=== PATIENT | female | born 1975 | race Caucasian/White ===

== ENCOUNTER 2017-06-04 18:25 | Outpatient (CLI) | END 2017-06-04 21:30 | disposition home or self-care (01) ==

== ENCOUNTER 2017-06-11 05:09 | Inpatient (IN) | END 2017-06-14 13:25 | disposition home or self-care (01) | DRG 766 ==

== ENCOUNTER 2018-05-17 13:27 | Emergency (ER) | payer OTHER ==
[~2018-05-17] VITALS: Ht 157.5 cm; Wt 56.6 kg
[2018-05-17 13:32] VITALS: Ht 157.5 cm; Wt 56.6 kg
[2018-05-17] MEDS ORDERED: RANI300T PO (14:11)
[2018-05-17] MEDS ORDERED: SOD CHLORIDE 0.9% 1,000 ML IV STA (14:23)
[2018-05-17] MEDS ORDERED: FAMOTIDINE 20 MG INJ IV STA (14:23)
[2018-05-17] MEDS ORDERED: morphine 4 MG/ML VIAL IV STA (14:23)
[2018-05-17] MEDS ORDERED: LIDOCAINE/MYLANTA 40 ML BTL PO STA (14:23)
[2018-05-17] MEDS ORDERED: METOCLOPRAMIDE 10 MG INJ IV STA (14:23)
[2018-05-17] MEDS ORDERED: METO10TA92 PO (15:51)
[2018-05-17] MEDS ORDERED: SUCR1TAB56 PO (15:51)
[2018-05-17 16:04] VITALS: BP 134/78; PULSE 78; RESP 20
--- NOTE | 2018-05-17 16:20 | ERD ---
ER Documentation Chief Complaint Chief Complaint abd pain x 4 days with nausea, denies vomiting/diarrhea HPI 43-year-old female with a history of gastritis and H. pylori presenting with complaints of severe epigastric discomfort. She feels like something is stuck in her epigastrium. She complains of pressure-like, burning pain, that radiates up into her chest. She feels some throat pain likely secondary to her reflux. She states that recently she was eating spicy food and she thinks that may have caused the pain. Pain does not radiate to the back. She has had episodes of retching but has not been vomiting. Her pain is worse with food. It is intermittent and provoked with food. No alleviating factors. She is already taking omeprazole and ranitidine without improvement of her symptoms. Denies fevers or chills. No melena or hematochezia. ROS All systems reviewed and are negative except as per history of present illness. Medications Home Meds Active Scripts Sucralfate* (Carafate*) 1 Gm Tab, 1 GM PO QID PRN for Before each meal, #30 TAB Prov:HETAL GUZMÁN MD 05/17/18 Metoclopramide* (Reglan*) 10 Mg Tablet, 10 MG PO Q6 PRN for NAUSEA AND/OR VOMITING, #20 TAB Prov:HETAL GUZMÁN MD 05/17/18 Reported Medications Ranitidine Hcl* (Ranitidine Hcl*) 300 Mg Tablet, 300 MG PO HS, #30 TAB 05/17/18 Allergies Allergies: Coded Allergies: No Known Allergy (Unverified , 05/17/18) PMhx/Soc History of Surgery: Yes (RIGHT HAND CYST SX, ) Anesthesia Reaction: No Hx Neurological Disorder: No Hx Respiratory Disorders: No Hx Cardiac Disorders: No Hx Psychiatric Problems: No Hx Miscellaneous Medical Probl: No Hx Alcohol Use: Yes Hx Substance Use: No Hx Tobacco Use: Yes Smoking Status: Never smoker FmHx Family History: No diabetes Physical Exam Vitals Vital Signs Date Temp Pulse Resp B/P (MAP) Pulse Ox O2 O2 Flow FiO2 Time Delivery Rate 05/17/18 78 20 134/78 99 Room Air 16:04 (96) 05/17/18 97.6 107 20 156/79 99 13:32 (104) Physical Exam Const: No acute distress, nontoxic Head: Atraumatic Eyes: Normal Conjunctiva ENT: Normal External Ears, Nose and Mouth. Neck: Full range of motion. No meningismus. Resp: Clear to auscultation bilaterally Cardio: Regular rate and rhythm, no murmurs Abd: Soft, discomfort to palpation in epigastrium without significant tenderness. No rebound or guarding., non distended. Negative Fish sign. Normal bowel sounds Skin: No petechiae or rashes Back: No midline or flank tenderness Ext: No cyanosis, or edema Neur: Awake and alert Psych: Normal Mood and Affect Result Diagram: 05/17/18 1425 05/17/18 1425 Results 24 hrs Laboratory Tests Test 05/17/18 14:25 White Blood Count 8.3 10^3/ul Red Blood Count 5.06 10^6/ul Hemoglobin 14.4 g/dl Hematocrit 43.8 % Mean Corpuscular Volume 86.6 fl Mean Corpuscular Hemoglobin 28.5 pg Mean Corpuscular Hemoglobin Concent 32.9 g/dl Red Cell Distribution Width 12.7 % Platelet Count 258 10^3/UL Mean Platelet Volume 9.7 fl Immature Granulocytes % 0.400 % Neutrophils % 75.8 % Lymphocytes % 15.7 % Monocytes % 7.0 % Eosinophils % 0.5 % Basophils % 0.6 % Nucleated Red Blood Cells % 0.0 /100WBC Immature Granulocytes # 0.030 10^3/ul Neutrophils # 6.3 10^3/ul Lymphocytes # 1.3 10^3/ul Monocytes # 0.6 10^3/ul Eosinophils # 0.0 10^3/ul Basophils # 0.1 10^3/ul Nucleated Red Blood Cells # 0.0 10^3/ul Sodium Level 142 mmol/L Potassium Level 4.2 mmol/L Chloride Level 102 mmol/L Carbon Dioxide Level 29 mmol/L Anion Gap 11 Blood Urea Nitrogen 11 mg/dl Creatinine 0.66 mg/dl Est Glomerular Filtrat Rate mL/min > 60 mL/min Glucose Level 116 mg/dl Calcium Level 9.9 mg/dl Total Bilirubin 0.3 mg/dl Direct Bilirubin 0.00 mg/dl Indirect Bilirubin 0.3 mg/dl Aspartate Amino Transf (AST/SGOT) 29 IU/L Alanine Aminotransferase (ALT/SGPT) 8 IU/L Alkaline Phosphatase 106 IU/L Total Protein 8.6 g/dl Albumin 4.6 g/dl Globulin 4.00 g/dl Albumin/Globulin Ratio 1.15 Lipase 58 U/L Serum HCG, Qualitative NEGATIVE Current Medications Medications Dose Sig/Lacy Start Time Status Last (Trade) Ordered Route PRN Stop Time Admin Dose Reason Admin Sodium 1,000 ml @ Q1H STAT 05/17/18 DC 05/17/18 Chloride 1,000 mls/hr IV 14:23 14:35 05/17/18 15:22 Morphine 4 mg ONCE STAT 05/17/18 DC 05/17/18 Sulfate IV 14:23 14:35 (morphine) 05/17/18 14:25 10 mg ONCE STAT 05/17/18 DC 05/17/18 Metoclopramid IV 14:23 14:35 e HCl 05/17/18 14:25 (Reglan) Famotidine 20 mg ONCE STAT 05/17/18 DC 05/17/18 (Pepcid Iv) IV 14:23 14:35 05/17/18 14:25 40 ml ONCE STAT 05/17/18 DC 05/17/18 Miscellaneous PO 14:23 14:34 Medication 05/17/18 14:25 (Gi Cocktail (2)) Procedures/MDM EMERGENT LABS AND DIAGNOSTIC STUDIES: Lab Results above were reviewed and interpreted by me. CBC: no anemia or evidence of infection CMP: No evidence of electrolyte abnormality, renal failure, hypoglycemia, liver failure, or biliary obstruction Lipase: no evidence of pancreatitis Initial Nursing notes reviewed. Previous Medical Records requested via the Electronic Health Record. EMERGENCY DEPARTMENT COURSE / MEDICAL DECISION MAKING: Patient is presenting with signs and symptoms of gastritis exacerbation, likely secondary to her diet. Vitals are stable and she is afebrile. I doubt pancreatitis, cholecystitis, choledocholithiasis, colitis, bowel obstruction, or perforated viscus. Patient was treated with a GI cocktail, IV fluids, and Reglan with improvement of her symptoms. She was able to tolerate fluids by mouth. I recommended she abstain from specific foods that are causing her reflux to get worse. I will prescribe her sucralfate and Reglan to be used as needed. Return precautions were discussed. Patient's blood pressure was elevated (>120/80) but appears stable without evidence of hypertensive emergency or urgency. The patient was counseled about the risks of hypertension and urged to pursue outpatient monitoring and therapy within a week with their primary care physician. Departure Diagnosis: Primary Impression: Abdominal pain Abdominal location: epigastric Qualified Codes: R10.13 - Epigastric pain Additional Impression: Gastritis Gastritis type: unspecified gastritis Chronicity: chronic Gastritis bleeding: without bleeding Qualified Codes: K29.50 - Unspecified chronic gastritis without bleeding Condition: Stable Patient Instructions: Abdominal Pain, Gastritis (Adult) Additional Instructions: Kathy kimberly mona con velazquez medico primario en 1-2 queen. Regresa si estas empeorando. HETAL GUZMÁN MD May 17, 2018 16:20
== END 2018-05-17 16:05 | disposition home or self-care (01) ==
LOC: E/R 13:27
DX: K29.50 Unspecified chronic gastritis without bleeding (principal); R40.2142 Coma scale, eyes open, spontaneous, at arrival to emergency department; R40.2362 Coma scale, best motor response, obeys commands, at arrival to emergency department; R40.2252 Coma scale, best verbal response, oriented, at arrival to emergency department
CPT/HCPCS: 36415; 80053; 83690; 84703; 85025; 96374; 96375; J2765; J7030; Z7502; Z7610

== ENCOUNTER 2018-06-23 11:27 | Emergency (ER) | payer OTHER ==
[~2018-06-23] VITALS: Ht 160 cm; Wt 56.2 kg
[~2018-06-23 11:27] MED LIST: METO10TA92 PO; RANI300T PO; SUCR1TAB56 PO
[2018-06-23 11:37] VITALS: BP 147/76; PULSE 69; RESP 18; Ht 160 cm; Wt 56.2 kg
[2018-06-23] MEDS ORDERED: IBUPROFEN 600 MG TAB PO ONE (14:30)
[2018-06-23] MEDS ORDERED: IBUP-1542 PO (15:14)
--- NOTE | 2018-06-23 15:17 | ERD ---
ER Documentation Chief Complaint Chief Complaint Left arm pain and left side pain s/p slip and fall 3 days ago HPI This 43-year-old female slipped and fell on her left side 3 days ago. She has pain in her left upper back, and her left trapezius area. She denies any head injury, loss of consciousness, vomiting, deficits, hemoptysis, additional symptoms. ROS All systems reviewed and are negative except as per history of present illness. Medications Home Meds Active Scripts Ibuprofen* (Motrin*) 600 Mg Tab, 600 MG PO Q6, #20 TAB Prov:UMANG BROWN MD 06/23/18 Sucralfate* (Carafate*) 1 Gm Tab, 1 GM PO QID PRN for Before each meal, #30 TAB Prov:HETAL GUZMÁN MD 05/17/18 Metoclopramide* (Reglan*) 10 Mg Tablet, 10 MG PO Q6 PRN for NAUSEA AND/OR VOMITING, #20 TAB Prov:HETAL GUZMÁN MD 05/17/18 Reported Medications Ranitidine Hcl* (Ranitidine Hcl*) 300 Mg Tablet, 300 MG PO HS, #30 TAB 05/17/18 Allergies Allergies: Coded Allergies: No Known Allergy (Unverified , 05/17/18) PMhx/Soc History of Surgery: Yes (RIGHT HAND CYST SX, ) Anesthesia Reaction: No Hx Neurological Disorder: No Hx Respiratory Disorders: No Hx Cardiac Disorders: No Hx Psychiatric Problems: No Hx Miscellaneous Medical Probl: No Hx Substance Use: No Hx Tobacco Use: Yes (last used 1 month ago) Smoking Status: Current some day smoker FmHx Family History: No diabetes, No coronary disease, No other Physical Exam Vitals Vital Signs Date Temp Pulse Resp B/P (MAP) Pulse Ox O2 O2 Flow FiO2 Time Delivery Rate 06/23/18 98.0 69 18 147/76 99 11:37 (99) Physical Exam Const: No acute distress Head: Atraumatic Eyes: Normal Conjunctiva ENT: Normal External Ears, Nose and Mouth. Neck: Full range of motion. No meningismus. Minimal tenderness primarily left trapezius and left cervical paraspinous muscles. Resp: Clear to auscultation bilaterally. Minimal tenderness left posterior T8-T9. No crepitance, ecchymosis, deformities. Cardio: Regular rate and rhythm, no murmurs Abd: Soft, non tender, non distended. Normal bowel sounds Skin: No petechiae or rashes Back: No midline or flank tenderness Ext: No cyanosis, or edema Neur: Awake and alert Psych: Normal Mood and Affect Results 24 hrs Current Medications Medications Dose Sig/Lacy Start Time Status Last (Trade) Ordered Route PRN Stop Time Admin Dose Reason Admin Ibuprofen 600 mg ONCE ONCE 06/23/18 DC 06/23/18 (Motrin) PO 14:30 14:07 06/23/18 14:31 Procedures/MDM Chest X-ray 1V Interpreted by me: Soft Tissue: No acute abnormalities Bones: No acute abnormalities Mediastinum/Cardiac Silhouette/Lungs: No acute abnormalities. Impression- normal 1 view chest x-ray X-ray C spine 3V Interpreted by me: Bones: No fracture Joints: No dislocation Foreign body: None. Impression-normal C-spine x-ray Patient presents with left upper back pain, left-sided neck pain, likely musculoskeletal strain or contusion. She has no signs of obvious fracture, hemothorax, pneumothorax, fracture, dislocation, head injury, additional complications. Patient will be treated with ibuprofen, further observation at home and return precautions. The patient was stable with no new complaints during the ER course. Clinically, there is no current evidence to suggest meningitis, sepsis, acute abdomen, pneumonia, stroke, acute coronary syndrome, pulmonary embolism, aortic dissection or any other emergent condition appearing to require further evaluation or hospitalization. Patient counseled regarding my diagnostic impression and care plan. Prior to discharge all questions answered. Pt agrees with treatment plan and understands strict return precautions. Pt is instructed to follow up with primary care provider within 24- 48 hours. Precautionary instructions provided including instructions to return to the ER if not improving or for any worsening or changing symptoms or concerns. Departure Diagnosis: Primary Impression: Fall Encounter type: initial encounter Qualified Codes: W19.XXXA - Unspecified fall, initial encounter Additional Impression: Pain of left arm Condition: Stable Patient Instructions: Shoulder Sprain Additional Instructions: Examines normal hoy. Cheque otro vez con velazquez doctor primario en el proximo queen or regresa para mas o nueva simptomas. UMANG BROWN MD Jun 23, 2018 15:17
== END 2018-06-23 15:36 | disposition home or self-care (01) ==
LOC: FTE 11:27
DX: M79.602 Pain in left arm (principal); F17.210 Nicotine dependence, cigarettes, uncomplicated
CPT/HCPCS: 71045; 72040; Z7502; Z7610

== ENCOUNTER 2018-07-13 05:42 | Day surgery (SDC) | payer OTHER ==
[~2018-07-13] VITALS: Ht 149.9 cm; Wt 56.0 kg
[~2018-07-13 05:42] MED LIST changes: +IBUP-1542 PO
[2018-07-13 06:41] VITALS: Ht 149.9 cm; Wt 56.0 kg
[2018-07-13 07:29] VITALS: BP 112/73; PULSE 90; RESP 20
[2018-07-13] MEDS ORDERED: FENTAnyl 50 MCG/ML VIAL ONE (08:20)
[2018-07-13] MEDS ORDERED: MIDAZOLAM 1 MG/ML 2 ML INJ ONE ×2 (08:20→08:21)
[2018-07-13 08:42] VITALS: BP 105/59; RESP 16
--- NOTE | 2018-07-13 21:23 | CONS ---
DATE OF ADMISSION: 07/13/2018 DATE OF CONSULTATION: PATIENT NAME: OLINDA YOUNG TYPE OF CONSULTATION: Preoperative gastroenterology. Dear Dr. Anguiano: I thank you very much for this kind referral. HISTORY OF PRESENT ILLNESS: Ms. Olinda Young is a 43-year-old female patient who has been referre d to me for further evaluation of upper abdominal pain and chronic heartburn, not responding to thera py with Zantac and Carafate. No past history of peptic ulcer disease. Not on nonsteroidal anti-infl ammatory agents. No history of gallstones or liver disease. Denies any change in the bowel habit or rectal bleeding. Not a hypertensive or diabetic. No heart disease, lung problem or kidney disease. SOCIAL HISTORY: The patient is a smoker. Denies alcohol abuse. FAMILY HISTORY: No family history of gastrointestinal tract neoplasm. ALLERGIES: NO DRUG ALLERGIES. MEDICATIONS: 1. Zantac. 2. Carafate. 3. Librium. PHYSICAL EXAMINATION: VITAL SIGNS: She is 4 feet 11 inches tall and weighs 123 pounds. HEART: Normal heart sounds. LUNGS: Clear. ABDOMEN: Soft, no masses. Normal bowel sounds. NEUROLOGIC: Normal neurological exam. IMPRESSION: 1. Upper abdominal pain and chronic heartburn, not responding to therapy with Zantac and Carafate. 2. The patient is on Librium. 3. The patient is a smoker. PLAN: 1. The patient was strongly advised to stop smoking. 2. Endoscopic examination for further evaluation. The procedure and possible complications are well explained to the patient. She understands and cons ents to the procedure. I thank you once again. With warmest personal regards, Dictated By: LIV DIETRICH/PAMELA Conf#: [id number] DID#: [id number]
== END 2018-07-15 11:47 | disposition home or self-care (01) ==
LOC: GIL 05:42
PROVIDERS: ATTEND Internal Medicine Gastroenterology
DX: K29.50 Unspecified chronic gastritis without bleeding (principal); K21.9 Gastro-esophageal reflux disease without esophagitis
CPT/HCPCS: 43239; 84703; 88305; 88312; J2250; J3010; Z7610